=== PATIENT | female | born 1950 | race Caucasian/White ===

== ENCOUNTER 2016-08-08 08:18 | Day surgery (SDC) | payer MEDICARE, OTHER ==
--- NOTE | ~2016-08-08 | EGD ---
EGD REPORT [facility] [address] [address] NAME: FLOR MURRIETA : [birth year] STATUS : REG [facility]#: [id number] AGE: 66 ADM/REG DATE : 08/08/16 MR#: [id number] REPORT SERV DATE: 08/08/16 DICTATED BY: KIMBERLY LADD DATE: 08/08/16 REPORT STATUS : Draft [facility]ED [facility]: [facility] DATE: 08/08/16 [facility] Patient Name: Flor Murrieta Date of : 1950 Attending MD: KIMBERLY LADD, Procedure Date No Time: 08/08/2016 Procedure: Upper EUS Indications: Common bile duct dilation (acquired) seen on MRCP Referring MD: PERCY CHADWICK MD, Devin Barrera MD Medicines: Monitored Anesthesia Care Complications: No immediate complications. Estimated blood loss: None. Procedure: Pre-Anesthesia Assessment: - ASA Grade Assessment: III - A patient with severe systemic disease. After obtaining informed consent, the endoscope was passed under direct vision. Throughout the procedure, the patient's blood pressure, pulse, and oxygen saturations were monitored continuously. The GIF [id number] was introduced through the mouth, and advanced to the second part of duodenum. After obtaining informed consent, the endoscope was passed under direct vision. Throughout the procedure, the patient's blood pressure, pulse, and oxygen saturations were monitored continuously. The Endoscope was introduced through the mouth, and advanced to the second part of duodenum. Findings: Endoscopic Finding : The examined esophagus was endoscopically normal. The entire examined stomach was endoscopically normal. The cardia and gastric fundus were normal on retroflexion. The examined duodenum was endoscopically normal. The cardia and gastric fundus were normal on retroflexion. Endosonographic Finding : There was minimal dilation in the common bile duct which measured up to 6 mm. Endosonographic imaging of the visualized portion of the biliary system showed no stones, no sludge and no mass. There was no sign of significant endosonographic abnormality in the entire pancreas. The pancreas was well visualized, no pathologic lymphadenopathy, no masses, no calcifications, the pancreatic duct was well visualized from ampulla to tail, the pancreatic duct was regular in contour. No lymphadenopathy seen. There was no sign of significant endosonographic abnormality in the EGD REPORT [place] [id number] [place]. [address] NAME: FLOR MURRIETA : [birth year] STATUS : REG [facility]#: [id number] AGE: 66 ADM/REG DATE : 08/08/16 MR#: [id number] REPORT SERV DATE: 08/08/16 DICTATED BY: KIMBERLY LADD DATE: 08/08/16 REPORT STATUS : Draft TRANSCRIBED BY: [employer] DATE: 08/08/16 examined duodenum. Endosonographic images of the stomach were unremarkable. There was no sign of significant endosonographic abnormality in the esophagus. Impression: - Normal esophagus. - Normal stomach. - Normal examined duodenum. - There was dilation in the common bile duct which measured up to 6 mm. - There was no sign of significant pathology in the entire pancreas. - There was no sign of significant pathology in the examined duodenum. - Endosonographic images of the stomach were unremarkable. - There was no sign of significant pathology in the esophagus. Recommendation: - Return to referring physician. - Return to previous diet. - Continue present medications. Procedure Code(s): --- Professional --- 85806, Esophagogastroduodenoscopy, flexible, transoral; with endoscopic ultrasound examination, including the esophagus, stomach, and either the duodenum or a surgically altered stomach where the jejunum is examined distal to the anastomosis Diagnosis Code(s): --- Professional --- K83.8, Other specified diseases of biliary tract CPT copyright 2013 [employer]. All rights reserved. The codes documented in this report are preliminary and upon plant and instrument engineer review may be revised to meet current compliance requirements. KIMBERLY LADD, 08/08/2016 12:56 PM Number of Addenda: 0 Note Initiated On: 08/08/2016 12:17 PM Scope Withdrawal Time 0 hours 0 minutes 0 seconds EGD REPORT [facility] [address] [address] NAME: FLOR MURRIETA : 50 STATUS : REG [facility] [place] PAT#: [id number] AGE: 66 ADM/REG DATE : 08/08/16 MR#: [id number] REPORT SERV DATE: 08/08/16 DICTATED BY: KIMBERLY LADD DATE: 08/08/16 REPORT STATUS : Draft TRANSCRIBED BY: [facility] DATE: 08/08/16 [id number] [id number]
[~2016-08-08 08:18] MED LIST: ALIGN4 MG PO; ASAB PO; ASABAYER PO; ATEN25 PO; CLARIT10 PO; COMBIVENT INH; D 5000 PO; DULERA 200 MCG/13 GM INH; FLAGY; FLAGYL250 MG PO; MELOXICAM PO; MOBIC15 MG PO; MULTIVIT/MIN PO; NEUR100 PO; NEURONTIN; NEXIUM40 PO; NOR25 PO; NORV5 PO; PROTONIX PO; SARAFEM20 M1 PO; TYLENOL ARTH650 MG PO; VITAMIN D31000 UNIT PO; ZESTRIL20 MG PO
[2016-10-05] MEDS ORDERED: ASA5GR PO (11:24)
[2016-10-05] MEDS ORDERED: ZOCOR5 MG PO (11:24)
[2016-10-05] MEDS ORDERED: AREDS (11:25)
[2016-10-05] MEDS ORDERED: ACET500CAP PO (11:28)
[2016-10-05] MEDS ORDERED: MEDS (11:50)
== END 2016-08-08 23:59 | disposition home or self-care (01) ==
LOC: DMU 08:18
PROVIDERS: Internal Medicine Gastroenterology
PROC: 0D758ZZ Dilation of Esophagus, Via Natural or Artificial Opening Endoscopic (ICD-10-PCS; principal; 2016-08-08 12:30)
DX: K83.8 Other specified diseases of biliary tract (principal); I10 Essential (primary) hypertension; K21.9 Gastro-esophageal reflux disease without esophagitis; K58.9 Irritable bowel syndrome, unspecified; Z85.3 Personal history of malignant neoplasm of breast; Z88.1 Allergy status to other antibiotic agents
CPT/HCPCS: 82150; 83690; C1725